=== PATIENT | female | born 1955 | race Caucasian/White ===

== ENCOUNTER 2017-05-31 20:58 | Inpatient (IN) | payer OTHER ==
[~2017-05-31] VITALS: Ht 167.6 cm; Wt 104.0 kg
[2017-05-31] MEDS ORDERED: SODIUM CHLORIDE 0.9% 1,000 ML IV ONE (22:03)
[2017-05-31] MEDS ORDERED: LEVO88TA4 PO (22:21)
[2017-05-31] MEDS ORDERED: HYDR10TA PO (22:21)
[2017-05-31] MEDS ORDERED: [UNRECOGNIZED DRUG - CODE] SQ (22:21)
[2017-05-31] MEDS ORDERED: ONDANSETRON 2MG/ML, 2ML ONE (22:25)
[2017-05-31] MEDS ORDERED: ONDANSETRON 2MG/ML, 2ML IVPush ONE (22:30)
[2017-05-31] MEDS ORDERED: SODIUM CHLORIDE FLUSH 10ML SYR IVF ONE (22:30)
[2017-05-31 23:01] LABS: BLOOD UREA NITROGEN 33 mg/dL (7-18)
[2017-05-31 23:07] LABS: ASPARTATE AMINO TRANSFERASE 115 U/L (15-37)
[2017-05-31 23:19] LABS: IS PT STATUS REG ER OR PRE ER? YES
[2017-05-31] MEDS ORDERED: HEPARIN 25,000 UNITS/500ML PMX 500 ML IV PRN (23:45)
[2017-05-31] MEDS ORDERED: HEPARIN 5,000 UNITS/ML, 1ML IV PRN (23:45)
[2017-05-31] MEDS ORDERED: HEPARIN 5,000 UNITS/ML, 1ML IV ONE (23:45)
[2017-06-01] MEDS ORDERED: SODIUM CHLORIDE FLUSH 10ML SYR IVF PRN
[2017-06-01] MEDS ORDERED: HEPARIN 5,000 UNITS/ML, 1ML ONE (00:18)
[2017-06-01] MEDS ORDERED: NS + 20MEQ KCL 1,000 ML IV SCH (00:39)
[2017-06-01] MEDS ORDERED: HEPARIN 25,000 UNITS/500ML PMX 500 ML ONE (00:49)
[2017-06-01] MEDS ORDERED: DOCUSATE 100 MG CAPSULE PO PRN (01:00)
[2017-06-01] MEDS ORDERED: POLYETHYLENE GLYCOL 17 GM PACKET PO PRN (01:00)
[2017-06-01] MEDS ORDERED: ONDANSETRON 2MG/ML, 2ML IVPush PRN (01:00)
[2017-06-01] MEDS ORDERED: ACETAMINOPHEN 325 MG TABLET PO PRN (01:00)
[2017-06-01] MEDS ORDERED: CEFTRIAXONE PMX 1GM/50ML 50 ML ONE (01:05)
[2017-06-01] MEDS: CEFTRIAXONE PMX 1GM/50ML 50 ML IV SCH (01:08)
[2017-06-01 02:13] VITALS: BP 91/60
[2017-06-01] MEDS: LEVOTHYROXINE 88 MCG TABLET PO SCH (06:23)
[2017-06-01] MEDS: ASPIRIN 325 MG TABLET EC PO SCH (06:23)
[2017-06-01 06:42] LABS: BLOOD UREA NITROGEN 30 mg/dL (7-18)
[2017-06-01 06:46] LABS: IS PT STATUS REG ER OR PRE ER? NO
[2017-06-01 06:53] VITALS: BP_SYST 110; BP_SYST 142; BP_DIAS 68; BP_DIAS 83
[2017-06-01] MEDS: OCTREOTIDE 500 MCG/ML, 1ML (0.5MG/ML) SQ SCH ×2 (08:20→21:22)
[2017-06-01] MEDS: HYDROCORTISONE 10 MG TABLET PO SCH ×2 (08:23→21:21)
[2017-06-01] MEDS: SENNA/DOCUSATE TABLET PO SCH (08:23)
[2017-06-01 12:57] VITALS: BP 91/58
[2017-06-01] MEDS ORDERED: MIDAZOLAM 1 MG/ML, 5ML ONE (15:57)
[2017-06-01] MEDS ORDERED: FENTANYL PF 100 MCG/2ML ONE (15:57)
[2017-06-01] MEDS ORDERED: VERAPAMIL 2.5 MG/ML, 2ML ONE (15:57)
[2017-06-01] MEDS ORDERED: TICAGRELOR 90 MG TABLET ONE (15:57)
[2017-06-01] MEDS ORDERED: HEPARIN 1,000 UNITS/ML, 10ML ONE (15:58)
[2017-06-01] MEDS ORDERED: LIDOCAINE 2%, 20ML ONE (15:58)
[2017-06-01] MEDS ORDERED: BIVALIRUDIN 250 MG ONE (15:58)
[2017-06-01] MEDS ORDERED: NITROGLYCERIN 5 MG/ML, 10ML ONE (16:43)
[2017-06-01] MEDS: SODIUM CHLORIDE 0.9% 1,000 ML IV SCH (17:14)
[2017-06-01 20:12] VITALS: BP 106/73
[2017-06-02] MEDS: SODIUM CHLORIDE 0.9% 1,000 ML IV SCH ×3 (00:55→17:14)
[2017-06-02] MEDS: CEFTRIAXONE PMX 1GM/50ML 50 ML IV SCH (00:55)
[2017-06-02 01:04] VITALS: BP 96/65
[2017-06-02 05:03] LABS: BLOOD UREA NITROGEN 27 mg/dL (7-18)
[2017-06-02 05:16] LABS: ASPARTATE AMINO TRANSFERASE 49 U/L (15-37); TOTAL IRON BINDING CAPACITY 181 mcg/dL (250-450)
[2017-06-02 05:51] LABS: HEPATITIS C VIRUS ANTIBODY Nonreactive (Nonreactive)
[2017-06-02] MEDS: ASPIRIN 325 MG TABLET EC PO SCH (06:25)
[2017-06-02] MEDS: LEVOTHYROXINE 88 MCG TABLET PO SCH (06:25)
[2017-06-02] MEDS: OCTREOTIDE 500 MCG/ML, 1ML (0.5MG/ML) SQ SCH ×2 (06:29→21:01)
[2017-06-02 07:55] VITALS: BP 92/57
[2017-06-02] MEDS: HYDROcodone/APAP 5/325 TABLET PO PRN ×2 (10:03→22:30)
[2017-06-02] MEDS: HYDROCORTISONE 10 MG TABLET PO SCH ×2 (10:04→21:01)
[2017-06-02] MEDS: SENNA/DOCUSATE TABLET PO SCH (10:06)
[2017-06-02 13:45] VITALS: BP 93/60
[2017-06-02 21:00] VITALS: BP 100/63
[2017-06-02] MEDS: morphine SULFATE 10 MG/ML, 1ML IVPush PRN ×2 (23:24→23:57)
[2017-06-03] MEDS: CEFTRIAXONE PMX 1GM/50ML 50 ML IV SCH (00:31)
[2017-06-03 00:35] VITALS: BP 100/65
[2017-06-03 06:04] LABS: BLOOD UREA NITROGEN 26 mg/dL (7-18)
[2017-06-03] MEDS: ASPIRIN 325 MG TABLET EC PO SCH (06:07)
[2017-06-03] MEDS: LEVOTHYROXINE 88 MCG TABLET PO SCH (06:07)
[2017-06-03 08:22] VITALS: BP 105/72
[2017-06-03] MEDS: HYDROCORTISONE 10 MG TABLET PO SCH ×2 (08:32→21:42)
[2017-06-03] MEDS: OCTREOTIDE 500 MCG/ML, 1ML (0.5MG/ML) SQ SCH ×2 (08:32→20:54)
[2017-06-03] MEDS: SENNA/DOCUSATE TABLET PO SCH (08:33)
[2017-06-03] MEDS ORDERED: PHENYLEPHRINE 10 MG/ML ONE (12:35)
[2017-06-03] MEDS ORDERED: PROPOFOL 10 MG/ML, 20ML ONE (12:35)
[2017-06-03] MEDS: ENOXAPARIN 40 MG/0.4 ML SQ SCH (13:59)
[2017-06-03 15:13] VITALS: BP 102/67
[2017-06-03 20:47] VITALS: BP 97/59
[2017-06-04] MEDS: CEFTRIAXONE PMX 1GM/50ML 50 ML IV SCH (01:03)
[2017-06-04 02:02] VITALS: BP 90/53
[2017-06-04 05:13] LABS: ASPARTATE AMINO TRANSFERASE 37 U/L (15-37); BLOOD UREA NITROGEN 19 mg/dL (7-18)
[2017-06-04] MEDS: LEVOTHYROXINE 88 MCG TABLET PO SCH (06:11)
[2017-06-04] MEDS: ASPIRIN 325 MG TABLET EC PO SCH (06:12)
[2017-06-04 07:29] VITALS: BP 97/60
[2017-06-04] MEDS: HYDROCORTISONE 10 MG TABLET PO SCH ×2 (09:33→21:10)
[2017-06-04] MEDS: OCTREOTIDE 500 MCG/ML, 1ML (0.5MG/ML) SQ SCH ×2 (09:33→21:10)
[2017-06-04] MEDS: SENNA/DOCUSATE TABLET PO SCH (09:33)
[2017-06-04] MEDS: ENOXAPARIN 40 MG/0.4 ML SQ SCH (14:43)
[2017-06-04 14:50] VITALS: BP 93/56
[2017-06-04 19:07] VITALS: BP 107/70
[2017-06-05 00:58] VITALS: BP 100/63
[2017-06-05] MEDS: CEFTRIAXONE PMX 1GM/50ML 50 ML IV SCH (01:05)
[2017-06-05 05:29] LABS: BLOOD UREA NITROGEN 21 mg/dL (7-18)
[2017-06-05] MEDS: ASPIRIN 325 MG TABLET EC PO SCH (06:17)
[2017-06-05] MEDS: LEVOTHYROXINE 88 MCG TABLET PO SCH (06:18)
[2017-06-05] MEDS: OCTREOTIDE 500 MCG/ML, 1ML (0.5MG/ML) SQ SCH ×2 (08:36→21:00)
[2017-06-05] MEDS: HYDROCORTISONE 10 MG TABLET PO SCH ×2 (08:36→21:00)
[2017-06-05] MEDS: SENNA/DOCUSATE TABLET PO SCH (08:36)
[2017-06-05 08:40] VITALS: BP 112/69
[2017-06-05 14:25] VITALS: BP 119/68
[2017-06-05] MEDS: ENOXAPARIN 40 MG/0.4 ML SQ SCH (14:59)
[2017-06-05 18:49] VITALS: BP 99/61
[2017-06-06 01:41] VITALS: BP 99/62
[2017-06-06] MEDS: CEFTRIAXONE PMX 1GM/50ML 50 ML IV SCH (01:45)
[2017-06-06] MEDS: HYDROcodone/APAP 5/325 TABLET PO PRN (03:36)
[2017-06-06] MEDS: LEVOTHYROXINE 88 MCG TABLET PO SCH (06:10)
[2017-06-06] MEDS: ASPIRIN 325 MG TABLET EC PO SCH (06:10)
[2017-06-06 08:50] VITALS: BP 118/73
[2017-06-06] MEDS: SENNA/DOCUSATE TABLET PO SCH (08:56)
[2017-06-06] MEDS: HYDROCORTISONE 10 MG TABLET PO SCH ×2 (08:56→20:21)
[2017-06-06] MEDS: OCTREOTIDE 500 MCG/ML, 1ML (0.5MG/ML) SQ SCH ×2 (08:57→20:21)
[2017-06-06] MEDS: ENOXAPARIN 40 MG/0.4 ML SQ SCH (13:33)
[2017-06-06 13:45] VITALS: BP 115/71
[2017-06-06 19:48] VITALS: BP 99/55
[2017-06-07] MEDS: CEFTRIAXONE PMX 1GM/50ML 50 ML IV SCH (01:25)
[2017-06-07 02:28] VITALS: BP 104/67
[2017-06-07] MEDS: HYDROcodone/APAP 5/325 TABLET PO PRN ×2 (02:33→09:27)
[2017-06-07 02:45] VITALS: BP 105/69
[2017-06-07] MEDS: LEVOTHYROXINE 88 MCG TABLET PO SCH (06:07)
[2017-06-07] MEDS: ASPIRIN 325 MG TABLET EC PO SCH (06:07)
[2017-06-07 06:38] LABS: ASPARTATE AMINO TRANSFERASE 13 U/L (15-37); BLOOD UREA NITROGEN 21 mg/dL (7-18)
[2017-06-07 06:59] VITALS: BP 112/68
[2017-06-07] MEDS: OCTREOTIDE 500 MCG/ML, 1ML (0.5MG/ML) SQ SCH ×2 (09:25→21:18)
[2017-06-07] MEDS: HYDROCORTISONE 10 MG TABLET PO SCH ×2 (09:27→21:18)
[2017-06-07] MEDS: SENNA/DOCUSATE TABLET PO SCH (09:27)
[2017-06-07 13:16] VITALS: BP 99/67
[2017-06-07] MEDS: ENOXAPARIN 40 MG/0.4 ML SQ SCH (13:53)
[2017-06-07] MEDS ORDERED: INSULIN ASPART 100 UNITS/ML, PEN SQ-INSULIN SCH (15:00)
[2017-06-07] MEDS ORDERED: CHLORHEXIDINE MOUTHWASH 15 ML UDC MM PRN (15:00)
[2017-06-07 15:32] LABS: BLOOD UREA NITROGEN 19 mg/dL (7-18)
[2017-06-07 15:34] LABS: ASPARTATE AMINO TRANSFERASE 12 U/L (15-37)
[2017-06-07 19:39] VITALS: BP 101/63
[2017-06-07] MEDS: MUPIROCIN OINT 2%, 22GM TP SCH (22:05)
[2017-06-08] MEDS: CEFTRIAXONE PMX 1GM/50ML 50 ML IV SCH (01:19)
[2017-06-08 03:19] VITALS: BP 103/68
[2017-06-08] MEDS ORDERED: ALBUMIN HUMAN 5% 500 ML IV ONE (04:00)
[2017-06-08 04:38] VITALS: BP 114/73
[2017-06-08 04:39] VITALS: BP 97/63
[2017-06-08] MEDS: MUPIROCIN OINT 2%, 22GM TP SCH ×3 (05:18→20:57)
[2017-06-08] MEDS: ASPIRIN 325 MG TABLET EC PO SCH (05:18)
[2017-06-08 06:01] LABS: BLOOD UREA NITROGEN 17 mg/dL (7-18)
[2017-06-08] MEDS: LEVOTHYROXINE 88 MCG TABLET PO SCH (06:20)
[2017-06-08] MEDS ORDERED: MIDAZOLAM 10MG/2 ML ONE (06:39)
[2017-06-08] MEDS ORDERED: FENTANYL PF 1000 MCG/20ML ONE (06:39)
[2017-06-08] MEDS ORDERED: PROPOFOL 10 MG/ML, 20ML ONE (07:24)
[2017-06-08] MEDS ORDERED: ROCURONIUM 10 MG/ML ONE (07:24)
[2017-06-08] MEDS ORDERED: POTASSIUM CHLORIDE 80 MEQ, SODIUM BICARBONATE 8.4% 10 MEQ, MAGNESIUM SULFATE 0.5 GM, LI... IV PRN (07:30)
[2017-06-08] MEDS ORDERED: MANNITOL PMX 20% 500 ML IVPB PRN (07:30)
[2017-06-08] MEDS ORDERED: PHENYLEPHRINE 10 MG in SODIUM CHLORIDE 0.9% 249 ML IV PRN ×2 (07:30→13:52)
[2017-06-08] MEDS ORDERED: REGULAR INSULIN 62.5 UNITS in SODIUM CHLORIDE 0.9% 249.375 ML IV PRN (07:30)
[2017-06-08] MEDS ORDERED: VANCOMYCIN 1,500 MG in SODIUM CHLORIDE 0.9% 250 ML IVPB PRN (07:30)
[2017-06-08] MEDS ORDERED: DEXMEDETOMIDINE 200 MCG in SODIUM CHLORIDE 0.9% 48 ML IV SCH (07:30)
[2017-06-08] MEDS ORDERED: EPINEPHRINE 2 MG in SODIUM CHLORIDE 0.9% 248 ML IV SCH (07:30)
[2017-06-08] MEDS ORDERED: ASPIRIN 325 MG TABLET EC PO ONE (08:30)
[2017-06-08] MEDS ORDERED: hydrALAzine 20 MG/ML, 1ML IV PRN (08:30)
[2017-06-08] MEDS: LISINOPRIL 10 MG TABLET PO SCH ×2 (09:00→19:50)
[2017-06-08] MEDS ORDERED: AMINOCAPROIC ACID 250 MG/ML, 20ML ONE (11:07)
[2017-06-08] MEDS ORDERED: PROTAMINE SULFATE 10 MG/ML, 25ML ONE (11:08)
[2017-06-08] MEDS ORDERED: NITROGLYCERIN/D5W PMX 250 ML IV PRN (13:52)
[2017-06-08] MEDS ORDERED: DOBUTAMINE 250 MG in SODIUM CHLORIDE 0.9% 230 ML IV PRN (13:52)
[2017-06-08] MEDS ORDERED: DEXMEDETOMIDINE 200 MCG in SODIUM CHLORIDE 0.9% 48 ML IV PRN (13:52)
[2017-06-08] MEDS ORDERED: ALBUMIN HUMAN 25% 100 ML ONE (13:58)
[2017-06-08] MEDS ORDERED: HEPARIN 1,000 UNITS/ML, 30ML ONE (13:59)
[2017-06-08] MEDS ORDERED: LIDOCAINE 2% 100MG/5ML SYRINGE ONE (13:59)
[2017-06-08] MEDS ORDERED: methylPREDNISolone SOD SUCC 125 MG/2 ML ONE (13:59)
[2017-06-08] MEDS ORDERED: LACTATED RINGERS 500 ML IVBOLUS PRN (14:00)
[2017-06-08] MEDS ORDERED: GLUCAGON 1 MG IM PRN (14:00)
[2017-06-08] MEDS ORDERED: ONDANSETRON 2MG/ML, 2ML IVPush PRN (14:00)
[2017-06-08] MEDS ORDERED: ACETAMINOPHEN 650 MG SUPP PR PRN (14:00)
[2017-06-08] MEDS ORDERED: ACETAMINOPHEN 325 MG TABLET PO PRN (14:00)
[2017-06-08] MEDS: KSCALE TO 4.5 IV SCH ×2 (14:00→19:59)
[2017-06-08] MEDS ORDERED: DEXTROSE 4 GM TAB.CHEW PO PRN (14:00)
[2017-06-08] MEDS ORDERED: MIDAZOLAM 1 MG/ML, 5ML IVPush PRN (14:00)
[2017-06-08] MEDS ORDERED: MEPERIDINE/PF 25MG/0.5ML IVPush PRN (14:00)
[2017-06-08] MEDS ORDERED: OXYcodone IR 5MG TABLET PO PRN (14:00)
[2017-06-08] MEDS ORDERED: PROCHLORPERAZINE 5 MG/ML, 2ML IVPush PRN (14:00)
[2017-06-08] MEDS ORDERED: BISACODYL 10 MG SUPP PR PRN (14:00)
[2017-06-08] MEDS ORDERED: DEXTROSE 50%, 50ML SYRINGE IVPush PRN (14:00)
[2017-06-08] MEDS ORDERED: BISACODYL 5 MG EC TABLET PO PRN (14:00)
[2017-06-08 14:30] LABS: ABG COLLECTION SITE ARTERIAL LINE
[2017-06-08] MEDS: SODIUM BICARB 8.4%, 50ML SYRINGE IV PRN ×3 (15:06→20:57)
[2017-06-08] MEDS ORDERED: LACTATED RINGERS 1,000 ML IVBOLUS PRN (15:18)
[2017-06-08] MEDS: SODIUM CHLORIDE 0.9% 1,000 ML IV PRN (15:20)
[2017-06-08] MEDS: MAGNESIUM SULFATE 1 GM in SODIUM CHLORIDE 0.9% 50 ML IVPB SCH (15:32)
[2017-06-08] MEDS ORDERED: POTASSIUM CHLORIDE PMX 100 ML IV ONE (16:00)
[2017-06-08] MEDS: morphine SULFATE 10 MG/ML, 1ML IVPush PRN ×2 (17:14→21:37)
[2017-06-08] MEDS: EPINEPHRINE 2 MG in SODIUM CHLORIDE 0.9% 248 ML IV PRN ×2 (17:50→22:08)
[2017-06-08] MEDS: VANCOMYCIN 1,400 MG in SODIUM CHLORIDE 0.9% 250 ML IVPB SCH (18:38)
[2017-06-08] MEDS: CEFUROXIME 1.5 GM in SODIUM CHLORIDE 0.9% 50 ML IVPB SCH (19:31)
[2017-06-08] MEDS: SODIUM CHLORIDE FLUSH 10ML SYR IVF SCH (20:17)
[2017-06-08] MEDS: MUPIROCIN OINT 2%, 22GM NAS SCH (20:57)
[2017-06-08] MEDS: DOCUSATE 100 MG CAPSULE PO SCH (20:58)
[2017-06-08] MEDS: REGULAR INSULIN 62.5 UNITS in SODIUM CHLORIDE 0.9% 249.375 ML IV PRN (22:08)
[2017-06-09] VITALS (7 sets, daily range): BP systolic 105–122; BP diastolic 52–66
[2017-06-09] MEDS: morphine SULFATE 10 MG/ML, 1ML IVPush PRN ×7 (01:36→23:45)
[2017-06-09] MEDS: KSCALE TO 4.5 IV SCH ×4 (01:52→23:00)
[2017-06-09] MEDS: EPINEPHRINE 4 MG in SODIUM CHLORIDE 0.9% 246 ML IV PRN ×2 (02:19→21:25)
[2017-06-09 04:56] LABS: ABG COLLECTION SITE ARTERIAL LINE
[2017-06-09] MEDS ORDERED: LACTATED RINGERS 1,000 ML IVBOLUS ONE (05:00)
[2017-06-09 05:10] LABS: BLOOD UREA NITROGEN 20 mg/dL (7-18)
[2017-06-09] MEDS: VANCOMYCIN 1,400 MG in SODIUM CHLORIDE 0.9% 250 ML IVPB SCH (05:52)
[2017-06-09] MEDS: LEVOTHYROXINE 88 MCG TABLET PO SCH (08:30)
[2017-06-09] MEDS: LISINOPRIL 10 MG TABLET PO SCH ×2 (09:00→21:00)
[2017-06-09] MEDS: DOCUSATE 100 MG CAPSULE PO SCH ×2 (09:00→21:00)
[2017-06-09] MEDS ORDERED: ASPIRIN 81 MG TABLET EC PO SCH (09:00)
[2017-06-09] MEDS: CEFUROXIME 1.5 GM in SODIUM CHLORIDE 0.9% 50 ML IVPB SCH (10:01)
[2017-06-09] MEDS: OCTREOTIDE 500 MCG/ML, 1ML (0.5MG/ML) SQ SCH (10:05)
[2017-06-09] MEDS: HYDROCORTISONE 100 MG INJ. IVPush SCH ×3 (10:05→23:45)
[2017-06-09] MEDS: PANTOPRAZOLE 40 MG IV IVPush SCH (10:06)
[2017-06-09] MEDS: SODIUM CHLORIDE FLUSH 10ML SYR IVF SCH ×2 (12:00→21:11)
[2017-06-09] MEDS: MUPIROCIN OINT 2%, 22GM NAS SCH ×2 (14:01→21:10)
[2017-06-09] MEDS: MAGNESIUM SULFATE 1 GM in SODIUM CHLORIDE 0.9% 50 ML IVPB SCH (14:02)
[2017-06-09] MEDS ORDERED: ALBUMIN HUMAN 5% 500 ML IV ONE (15:00)
[2017-06-09] MEDS: CHLORHEXIDINE MOUTHWASH 15 ML UDC MM SCH (17:05)
[2017-06-09] MEDS ORDERED: WARFARIN 7.5 MG TABLET PO-COUM ONE (18:00)
[2017-06-09] MEDS: MUPIROCIN OINT 2%, 22GM TP SCH (21:00)
[2017-06-09] MEDS: REGULAR INSULIN 62.5 UNITS in SODIUM CHLORIDE 0.9% 249.375 ML IV PRN (21:10)
[2017-06-09] MEDS: SODIUM CHLORIDE 0.9% 1,000 ML IV PRN (22:33)
[2017-06-10] MEDS: CHLORHEXIDINE MOUTHWASH 15 ML UDC MM SCH ×2 (01:33→14:00)
[2017-06-10] MEDS ORDERED: FUROSEMIDE 20 MG/2 ML IV ONE ×2 (02:30→17:30)
[2017-06-10 03:41] LABS: ABG COLLECTION SITE ARTERIAL LINE
[2017-06-10 04:00] LABS: BLOOD UREA NITROGEN 24 mg/dL (7-18)
[2017-06-10 05:00] VITALS: BP 100/58
[2017-06-10] MEDS: LEVOTHYROXINE 88 MCG TABLET PO SCH (06:49)
[2017-06-10] MEDS: INSULIN ASPART 100 UNITS/ML, PEN SQ-INSULIN PRN ×3 (06:55→22:57)
[2017-06-10] MEDS: FUROSEMIDE 20 MG/2 ML IV SCH (08:03)
[2017-06-10] MEDS: HYDROCORTISONE 100 MG INJ. IVPush SCH ×2 (08:03→17:16)
[2017-06-10] MEDS: PANTOPRAZOLE 40 MG IV IVPush SCH (08:03)
[2017-06-10] MEDS: ENOXAPARIN 40 MG/0.4 ML SQ SCH (08:03)
[2017-06-10] MEDS: SODIUM CHLORIDE FLUSH 10ML SYR IVF SCH ×2 (08:03→21:37)
[2017-06-10] MEDS: LISINOPRIL 10 MG TABLET PO SCH ×2 (08:03→21:36)
[2017-06-10] MEDS: POTASSIUM CHLORIDE 10 MEQ TABLET.ER PO SCH (08:13)
[2017-06-10] MEDS: OCTREOTIDE 500 MCG/ML, 1ML (0.5MG/ML) SQ SCH (08:14)
[2017-06-10] MEDS: ASPIRIN 81 MG TABLET EC PO SCH (08:14)
[2017-06-10] MEDS: DOCUSATE 100 MG CAPSULE PO SCH ×2 (08:14→21:36)
[2017-06-10] MEDS: HYDROcodone/APAP 10/325 MG TABLET PO PRN ×2 (08:14→14:16)
[2017-06-10] MEDS: MUPIROCIN OINT 2%, 22GM NAS SCH ×2 (08:14→21:36)
[2017-06-10] MEDS: MUPIROCIN OINT 2%, 22GM TP SCH (09:00)
[2017-06-10] MEDS: MAGNESIUM SULFATE 1 GM in SODIUM CHLORIDE 0.9% 50 ML IVPB SCH (13:50)
[2017-06-10] MEDS ORDERED: WARFARIN 7.5 MG TABLET PO-COUM SCH (18:00)
[2017-06-11] MEDS: HYDROCORTISONE 100 MG INJ. IVPush SCH ×3 (00:15→16:25)
[2017-06-11] MEDS: HYDROcodone/APAP 10/325 MG TABLET PO PRN ×4 (00:16→16:24)
[2017-06-11] MEDS: INSULIN ASPART 100 UNITS/ML, PEN SQ-INSULIN PRN ×5 (03:11→21:08)
[2017-06-11] MEDS: CHLORHEXIDINE MOUTHWASH 15 ML UDC MM SCH (03:12)
[2017-06-11 04:50] LABS: BLOOD UREA NITROGEN 25 mg/dL (7-18)
[2017-06-11] MEDS: LEVOTHYROXINE 88 MCG TABLET PO SCH (06:58)
[2017-06-11] MEDS: POTASSIUM CHLORIDE 10 MEQ TABLET.ER PO SCH (08:24)
[2017-06-11] MEDS: FUROSEMIDE 20 MG/2 ML IV SCH (08:24)
[2017-06-11] MEDS: PANTOPRAZOLE 40 MG IV IVPush SCH (08:24)
[2017-06-11] MEDS: DOCUSATE 100 MG CAPSULE PO SCH ×2 (08:24→21:07)
[2017-06-11] MEDS: ASPIRIN 81 MG TABLET EC PO SCH (08:24)
[2017-06-11] MEDS: OCTREOTIDE 500 MCG/ML, 1ML (0.5MG/ML) SQ SCH ×2 (08:25→18:25)
[2017-06-11] MEDS: LISINOPRIL 10 MG TABLET PO SCH ×2 (08:25→21:00)
[2017-06-11] MEDS: MUPIROCIN OINT 2%, 22GM NAS SCH ×2 (08:25→21:07)
[2017-06-11] MEDS: ENOXAPARIN 40 MG/0.4 ML SQ SCH (08:25)
[2017-06-11] MEDS: SODIUM CHLORIDE FLUSH 10ML SYR IVF SCH (08:25)
[2017-06-11] MEDS: WARFARIN MODERAT DOSE PROTOCOL XX SCH (12:00)
[2017-06-11] MEDS ORDERED: WARFARIN 7.5 MG TABLET PO-COUM SCH (18:00)
[2017-06-11 19:45] VITALS: BP 97/61
[2017-06-12] MEDS: SODIUM CHLORIDE FLUSH 10ML SYR IVF SCH ×2 (00:38→08:40)
[2017-06-12] MEDS: HYDROCORTISONE 100 MG INJ. IVPush SCH ×3 (00:38→17:04)
[2017-06-12 01:50] VITALS: BP 106/65
[2017-06-12] MEDS: LEVOTHYROXINE 88 MCG TABLET PO SCH (05:13)
[2017-06-12] MEDS: HYDROcodone/APAP 10/325 MG TABLET PO PRN (05:13)
[2017-06-12 05:44] LABS: BLOOD UREA NITROGEN 28 mg/dL (7-18)
[2017-06-12] MEDS: PANTOPROZOLE 40MG TABLET PO SCH (08:40)
[2017-06-12] MEDS: ENOXAPARIN 40 MG/0.4 ML SQ SCH (08:40)
[2017-06-12] MEDS: FUROSEMIDE 20 MG/2 ML IV SCH ×2 (08:40→20:38)
[2017-06-12] MEDS: POTASSIUM CHLORIDE 10 MEQ TABLET.ER PO SCH ×2 (08:41→20:37)
[2017-06-12] MEDS: ASPIRIN 81 MG TABLET EC PO SCH (08:41)
[2017-06-12] MEDS: DOCUSATE 100 MG CAPSULE PO SCH ×2 (08:41→20:36)
[2017-06-12] MEDS: LISINOPRIL 10 MG TABLET PO SCH ×2 (08:41→20:36)
[2017-06-12] MEDS: MUPIROCIN OINT 2%, 22GM NAS SCH ×2 (08:41→21:00)
[2017-06-12 08:46] VITALS: BP 126/81
[2017-06-12] MEDS ORDERED: OCTREOTIDE 500 MCG/ML, 1ML (0.5MG/ML) SQ PRN (11:00)
[2017-06-12] MEDS: WARFARIN MODERAT DOSE PROTOCOL XX SCH (12:00)
[2017-06-12 14:07] VITALS: BP 92/60
[2017-06-12] MEDS ORDERED: POTASSIUM CHLORIDE 20 MEQ TAB.ER.PRT PO ONE (17:00)
[2017-06-12] MEDS ORDERED: LIDOCAINE 1%, 20ML ONE (17:11)
[2017-06-12] MEDS ORDERED: WARFARIN 5 MG TABLET PO-COUM SCH (18:00)
[2017-06-12] MEDS: KETOROLAC 30 MG/1 ML IVPush PRN (18:10)
[2017-06-12 20:00] VITALS: BP 103/69
[2017-06-13] MEDS: HYDROCORTISONE 100 MG INJ. IVPush SCH ×2 (00:34→08:43)
[2017-06-13 02:00] VITALS: BP 107/73
[2017-06-13] MEDS: KETOROLAC 30 MG/1 ML IVPush PRN ×2 (04:12→22:32)
[2017-06-13] MEDS: SODIUM CHLORIDE FLUSH 10ML SYR IVF SCH ×3 (04:12→20:46)
[2017-06-13] MEDS: LEVOTHYROXINE 88 MCG TABLET PO SCH (05:32)
[2017-06-13 05:35] LABS: BLOOD UREA NITROGEN 26 mg/dL (7-18)
[2017-06-13] MEDS ORDERED: POTASSIUM CHLORIDE 20 MEQ TAB.ER.PRT PO ONE ×2 (07:00→08:30)
[2017-06-13] MEDS: POTASSIUM CHLORIDE 10 MEQ TABLET.ER PO SCH ×2 (08:42→20:46)
[2017-06-13] MEDS: LISINOPRIL 10 MG TABLET PO SCH ×2 (08:42→20:45)
[2017-06-13] MEDS: ASPIRIN 81 MG TABLET EC PO SCH (08:43)
[2017-06-13] MEDS: MUPIROCIN OINT 2%, 22GM NAS SCH (08:43)
[2017-06-13] MEDS: ENOXAPARIN 40 MG/0.4 ML SQ SCH (08:43)
[2017-06-13] MEDS: PANTOPROZOLE 40MG TABLET PO SCH (08:43)
[2017-06-13] MEDS: DOCUSATE 100 MG CAPSULE PO SCH ×2 (08:43→20:46)
[2017-06-13] MEDS: FUROSEMIDE 20 MG/2 ML IV SCH ×2 (08:43→20:46)
[2017-06-13 09:18] VITALS: BP 90/63
[2017-06-13] MEDS ORDERED: LIDOCAINE 1%, 20ML ONE (09:36)
[2017-06-13] MEDS: WARFARIN MODERAT DOSE PROTOCOL XX SCH (12:00)
[2017-06-13 14:20] VITALS: BP 86/59
[2017-06-13] MEDS: HYDROCORTISONE 10 MG TABLET PO SCH (17:25)
[2017-06-13] MEDS ORDERED: WARFARIN 7.5 MG TABLET PO-COUM SCH (18:00)
[2017-06-13] MEDS ORDERED: OXYcodone IR 5MG TABLET PO PRN (19:30)
[2017-06-13] MEDS ORDERED: BISACODYL 10 MG SUPP PR PRN (19:30)
[2017-06-13] MEDS ORDERED: hydrALAzine 20 MG/ML, 1ML IV PRN (19:30)
[2017-06-13] MEDS ORDERED: ACETAMINOPHEN 650 MG SUPP PR PRN (19:30)
[2017-06-13] MEDS ORDERED: OCTREOTIDE 500 MCG/ML, 1ML (0.5MG/ML) SQ PRN (19:30)
[2017-06-13] MEDS ORDERED: PROCHLORPERAZINE 5 MG/ML, 2ML IVPush PRN (19:30)
[2017-06-13] MEDS ORDERED: ACETAMINOPHEN 325 MG TABLET PO PRN (19:30)
[2017-06-13] MEDS ORDERED: BISACODYL 5 MG EC TABLET PO PRN (19:30)
[2017-06-13 20:10] VITALS: BP 95/62
[2017-06-13] MEDS ORDERED: ALBU8.5H3 NEB (20:26)
[2017-06-14 02:05] VITALS: BP 94/63
[2017-06-14 05:04] LABS: BLOOD UREA NITROGEN 26 mg/dL (7-18)
[2017-06-14] MEDS: LEVOTHYROXINE 88 MCG TABLET PO SCH (05:09)
[2017-06-14] MEDS: KETOROLAC 30 MG/1 ML IVPush PRN (05:09)
[2017-06-14 08:22] VITALS: BP 94/61
[2017-06-14] MEDS: HYDROCORTISONE 10 MG TABLET PO SCH (08:24)
[2017-06-14] MEDS: FUROSEMIDE 20 MG/2 ML IV SCH (08:24)
[2017-06-14] MEDS: ENOXAPARIN 40 MG/0.4 ML SQ SCH (08:24)
[2017-06-14] MEDS: DOCUSATE 100 MG CAPSULE PO SCH (08:25)
[2017-06-14] MEDS: PANTOPROZOLE 40MG TABLET PO SCH (08:25)
[2017-06-14] MEDS: POTASSIUM CHLORIDE 10 MEQ TABLET.ER PO SCH (08:25)
[2017-06-14] MEDS: ASPIRIN 81 MG TABLET EC PO SCH (08:25)
[2017-06-14] MEDS: SODIUM CHLORIDE FLUSH 10ML SYR IVF SCH (08:27)
[2017-06-14] MEDS ORDERED: POTASSIUM CHLORIDE 20 MEQ TAB.ER.PRT PO ONE (08:30)
[2017-06-14] MEDS ORDERED: ASPI-621 PO (10:17)
[2017-06-14] MEDS ORDERED: WARF5TAB PO-COUM (10:17)
[2017-06-14] MEDS ORDERED: FURO-93 PO (10:17)
[2017-06-14] MEDS ORDERED: POTA10TA5 PO (10:17)
[2017-06-14] MEDS ORDERED: LISI5TAB7 PO (10:17)
[2017-06-14] MEDS ORDERED: DOCU-30 PO (10:17)
[2017-06-14] MEDS ORDERED: PANT40TA5 PO (10:17)
[2017-06-14] MEDS ORDERED: TRAM-28 PO (10:17)
[2017-06-14] MEDS ORDERED: WARFARIN 5 MG TABLET PO-COUM SCH (18:00)
[2017-06-15] MEDS ORDERED: LISINOPRIL 5 MG TABLET PO SCH (09:00)
== END 2017-06-14 11:05 | disposition home health service (06) | DRG 216 ==
LOC: ED 23:58 → EDIP 23:59 → ED 23:59 → SUATTDRO 06-01 00:23 → 5SO 06-01 01:25 → CSU 06-08 07:45 → 5SO 06-11 18:46 → DCLOUNGE 06-14 11:05
PROVIDERS: ADMIT Family Medicine; ATTEND Internal Medicine
PROC: 4A023N7 Measurement of Cardiac Sampling and Pressure, Left Heart, Percutaneous Approach (ICD-10-PCS; principal; 2017-06-01)
PROC: B2111ZZ Fluoroscopy of Multiple Coronary Arteries using Low Osmolar Contrast (ICD-10-PCS; 2017-06-01)
PROC: 02RG08Z Replacement of Mitral Valve with Zooplastic Tissue, Open Approach (ICD-10-PCS; 2017-06-08)
PROC: 02RF08Z Replacement of Aortic Valve with Zooplastic Tissue, Open Approach (ICD-10-PCS; 2017-06-08)
PROC: 02BM0ZZ Excision of Ventricular Septum, Open Approach (ICD-10-PCS; 2017-06-08)
PROC: 5A1221Z Performance of Cardiac Output, Continuous (ICD-10-PCS; 2017-06-08)
PROC: B24BZZ4 Ultrasonography of Heart with Aorta, Transesophageal (ICD-10-PCS; 2017-06-08)
PROC: 5A1223Z Performance of Cardiac Pacing, Continuous (ICD-10-PCS; 2017-06-08)
PROC: 0W9B3ZZ Drainage of Left Pleural Cavity, Percutaneous Approach (ICD-10-PCS; 2017-06-12)
PROC: 0W993ZZ Drainage of Right Pleural Cavity, Percutaneous Approach (ICD-10-PCS; 2017-06-13)
DX: I42.1 Obstructive hypertrophic cardiomyopathy (principal); I21.4 Non-ST elevation (NSTEMI) myocardial infarction; N17.0 Acute kidney failure with tubular necrosis; E43 Unspecified severe protein-calorie malnutrition; I50.43 Acute on chronic combined systolic (congestive) and diastolic (congestive) heart failure; J96.00 Acute respiratory failure, unspecified whether with hypoxia or hypercapnia; E87.1 Hypo-osmolality and hyponatremia; B17.9 Acute viral hepatitis, unspecified; N39.0 Urinary tract infection, site not specified; E87.2 Acidosis; I44.2 Atrioventricular block, complete; Z99.11 Dependence on respirator [ventilator] status; I95.9 Hypotension, unspecified; I27.2 Other secondary pulmonary hypertension; E83.42 Hypomagnesemia; D49.7 Neoplasm of unspecified behavior of endocrine glands and other parts of nervous system; E03.9 Hypothyroidism, unspecified; D69.6 Thrombocytopenia, unspecified; E66.9 Obesity, unspecified; E78.5 Hyperlipidemia, unspecified; I08.0 Rheumatic disorders of both mitral and aortic valves; D64.9 Anemia, unspecified; E87.6 Hypokalemia; Z79.899 Other long term (current) drug therapy; Z88.1 Allergy status to other antibiotic agents; Z82.49 Family history of ischemic heart disease and other diseases of the circulatory system; Z79.52 Long term (current) use of systemic steroids
CPT/HCPCS: 36415; 36600; 70450; 71010; 71020; 76700; 80048; 80053; 80061; 80074; 81001; 81003; 82040; 82140; 82330; 82550; 82800; 82803; 82810; 82947; 82962; 83036; 83540; 83550; 83735; 84100; 84132; 84295; 84439; 84443; 84484; 85014; 85018; 85025; 85049; 85347; 85520; 85610; 85730; 86850; 86900; 86923; 87081; 87086; 88304; 88305; 93005; 93306; 93308; 93312; 93321; 93325; 93458; 93880; 94003; 94640; 96361; 96374; 96375; 96376; 99156; 99157; C1768; C1769; C1894; J0583; J0696; J0697; J1644; J1650; J1815; J1885; J2250; J2354; J2405; J2704; J2720; J3010; J3370; J3475; J3480; J3490; P9045; P9047; C1751; C1760; C1762; C9113; J0171; J1720; J1940; J2270; J2370; J2930; J7030; J7050; J7120; P9016; Q9967

== ENCOUNTER 2017-06-17 15:42 | Inpatient (IN) | payer OTHER ==
[~2017-06-17] VITALS: Ht 162.6 cm; Wt 89.2 kg
[~2017-06-17 15:42] MED LIST: ALBU8.5H3 NEB; ASPI-621 PO; DOCU-30 PO; FURO-93 PO; HYDR10TA PO; LEVO88TA4 PO; LISI5TAB7 PO; PANT40TA5 PO; POTA10TA5 PO; TRAM-28 PO; WARF5TAB PO-COUM; [UNRECOGNIZED DRUG - CODE] SQ
[2017-06-17] MEDS ORDERED: SODIUM CHLORIDE 0.9% 1,000ML IVBOLUS ONE (16:00)
[2017-06-17] MEDS ORDERED: SODIUM CHLORIDE FLUSH 10ML SYR IVF ONE (16:00)
[2017-06-17 16:25] LABS: WHITE BLOOD COUNT 9.4 x10^3/uL (3.4-10)
[2017-06-17 16:33] LABS: ASPARTATE AMINO TRANSFERASE 47 U/L (15-37); BLOOD UREA NITROGEN 14 mg/dL (7-18)
[2017-06-17 16:42] LABS: IS PT STATUS REG ER OR PRE ER? YES
[2017-06-17] MEDS ORDERED: NS + 20MEQ KCL 1,000 ML IV SCH (18:36)
[2017-06-17] MEDS ORDERED: POLYETHYLENE GLYCOL 17 GM PACKET PO PRN (19:00)
[2017-06-17] MEDS ORDERED: BISACODYL 10 MG SUPP PR PRN (19:00)
[2017-06-17] MEDS ORDERED: ONDANSETRON 2MG/ML, 2ML IVPush PRN (19:00)
[2017-06-17] MEDS ORDERED: NS + 20MEQ KCL 1,000 ML IV ONE (19:17)
[2017-06-17 20:30] VITALS: BP 84/59
[2017-06-17 22:55] LABS: IS PT STATUS REG ER OR PRE ER? NO
[2017-06-18 00:57] VITALS: BP 90/50
[2017-06-18 01:04] VITALS: BP 94/62
[2017-06-18] MEDS: FUROSEMIDE 20 MG TABLET PO SCH ×3 (01:05→20:52)
[2017-06-18] MEDS: POTASSIUM CHLORIDE 10 MEQ TABLET.ER PO SCH ×3 (01:05→20:51)
[2017-06-18] MEDS: ACETAMINOPHEN 325 MG TABLET PO PRN (01:59)
[2017-06-18 04:25] LABS: HEMATOCRIT 30.7 % (34.6-47.8); HEMOGLOBIN 10.1 g/dL (11.7-16.4); WHITE BLOOD COUNT 8.2 x10^3/uL (3.4-10)
[2017-06-18 04:36] LABS: BLOOD UREA NITROGEN 13 mg/dL (7-18)
[2017-06-18 04:43] LABS: ASPARTATE AMINO TRANSFERASE 34 U/L (15-37)
[2017-06-18 04:44] LABS: IS PT STATUS REG ER OR PRE ER? NO
[2017-06-18 07:00] VITALS: BP 94/66
[2017-06-18] MEDS: LEVOTHYROXINE 88 MCG TABLET PO SCH (07:50)
[2017-06-18] MEDS: SENNA/DOCUSATE TABLET PO SCH (07:50)
[2017-06-18 07:59] VITALS: BP 101/68
[2017-06-18] MEDS ORDERED: ASPIRIN 81 MG TABLET EC PO SCH (09:00)
[2017-06-18] MEDS ORDERED: LISINOPRIL 5 MG TABLET PO SCH (09:00)
[2017-06-18 16:05] VITALS: BP 89/56
[2017-06-18] MEDS: D5%-0.45NACL+KCL 20MEQ 1,000 ML IV SCH (16:58)
[2017-06-18] MEDS ORDERED: WARFARIN 5 MG TABLET PO-COUM SCH (18:00)
[2017-06-18 20:43] VITALS: BP 93/56
[2017-06-19 02:39] VITALS: BP 96/64
[2017-06-19] MEDS: ACETAMINOPHEN 325 MG TABLET PO PRN (02:43)
[2017-06-19 05:58] LABS: HEMATOCRIT 30.3 % (34.6-47.8); WHITE BLOOD COUNT 8.2 x10^3/uL (3.4-10)
[2017-06-19 06:11] LABS: BLOOD UREA NITROGEN 15 mg/dL (7-18)
[2017-06-19 06:15] LABS: ASPARTATE AMINO TRANSFERASE 27 U/L (15-37)
[2017-06-19 08:05] VITALS: BP 90/62
[2017-06-19] MEDS: POTASSIUM CHLORIDE 20 MEQ TAB.ER.PRT PO SCH ×2 (08:18→21:04)
[2017-06-19] MEDS: LEVOTHYROXINE 88 MCG TABLET PO SCH (08:19)
[2017-06-19] MEDS: SENNA/DOCUSATE TABLET PO SCH (08:19)
[2017-06-19] MEDS: FUROSEMIDE 20 MG TABLET PO SCH ×2 (08:20→17:34)
[2017-06-19] MEDS: D5%-0.45NACL+KCL 20MEQ 1,000 ML IV SCH (14:38)
[2017-06-19 14:42] VITALS: BP 89/60
[2017-06-19 17:32] VITALS: BP 93/65
[2017-06-19 20:00] VITALS: BP 88/61
[2017-06-20] VITALS (7 sets, daily range): BP systolic 92–103; BP diastolic 59–72
[2017-06-20] MEDS: OCTREOTIDE 100MCG/ML, 1ML (0.1MG/ML) SQ PRN (00:42)
[2017-06-20 04:59] LABS: BLOOD UREA NITROGEN 11 mg/dL (7-18)
[2017-06-20] MEDS ORDERED: HEPARIN 5,000 UNITS/ML, 1ML IV PRN (08:30)
[2017-06-20] MEDS ORDERED: HEPARIN 5,000 UNITS/ML, 1ML IV ONE (08:30)
[2017-06-20] MEDS ORDERED: HEPARIN 25,000 UNITS/500ML PMX 500 ML IV PRN (08:30)
[2017-06-20] MEDS: SENNA/DOCUSATE TABLET PO SCH (09:00)
[2017-06-20] MEDS: LEVOTHYROXINE 88 MCG TABLET PO SCH (09:56)
[2017-06-20] MEDS: POTASSIUM CHLORIDE 20 MEQ TAB.ER.PRT PO SCH ×2 (09:56→21:28)
[2017-06-20] MEDS ORDERED: HYDROmorphone 1 MG/ML, 1ML IV PRN ×2 (11:00→18:30)
[2017-06-20 11:02] LABS: HEMATOCRIT 31.1 % (34.6-47.8); HEMOGLOBIN 10.3 g/dL (11.7-16.4); WHITE BLOOD COUNT 8.1 x10^3/uL (3.4-10)
[2017-06-20 11:14] LABS: BLOOD UREA NITROGEN 10 mg/dL (7-18)
[2017-06-20] MEDS: D5%-0.45NACL+KCL 20MEQ 1,000 ML IV SCH (14:14)
[2017-06-20] MEDS: HYDROCORTISONE 100 MG INJ. IVPush SCH ×2 (14:15→21:28)
[2017-06-20] MEDS: FUROSEMIDE 20 MG TABLET PO SCH (17:00)
[2017-06-20] MEDS ORDERED: BISACODYL 10 MG SUPP PR PRN (18:30)
[2017-06-20] MEDS ORDERED: POLYETHYLENE GLYCOL 17 GM PACKET PO PRN (18:30)
[2017-06-20] MEDS ORDERED: ONDANSETRON 2MG/ML, 2ML IVPush PRN (18:30)
[2017-06-20] MEDS ORDERED: ACETAMINOPHEN 325 MG TABLET PO PRN (18:30)
[2017-06-21 02:12] VITALS: BP 100/68
[2017-06-21] MEDS: D5%-0.45NACL+KCL 20MEQ 1,000 ML IV SCH (05:13)
[2017-06-21] MEDS: HYDROCORTISONE 100 MG INJ. IVPush SCH ×3 (06:12→21:13)
[2017-06-21 07:07] LABS: BLOOD UREA NITROGEN 7 mg/dL (7-18)
[2017-06-21 07:10] LABS: ASPARTATE AMINO TRANSFERASE 39 U/L (15-37)
[2017-06-21 07:32] LABS: HEMATOCRIT 29.1 % (34.6-47.8); HEMOGLOBIN 9.5 g/dL (11.7-16.4); WHITE BLOOD COUNT 6.3 x10^3/uL (3.4-10)
[2017-06-21] MEDS: LEVOTHYROXINE 88 MCG TABLET PO SCH (09:32)
[2017-06-21] MEDS: FUROSEMIDE 20 MG TABLET PO SCH ×2 (09:32→17:00)
[2017-06-21] MEDS: POTASSIUM CHLORIDE 20 MEQ TAB.ER.PRT PO SCH ×2 (09:32→21:00)
[2017-06-21 09:33] VITALS: BP 104/69
[2017-06-21] MEDS: SENNA/DOCUSATE TABLET PO SCH (09:33)
[2017-06-21 13:55] VITALS: BP 103/72
[2017-06-21] MEDS ORDERED: MIDAZOLAM 1 MG/ML, 5ML ONE (15:06)
[2017-06-21] MEDS ORDERED: CEFAZOLIN 1,000 MG ONE (15:06)
[2017-06-21] MEDS ORDERED: LIDOCAINE 2%, 20ML ONE ×2 (15:06→15:53)
[2017-06-21] MEDS ORDERED: FENTANYL PF 100 MCG/2ML ONE (15:06)
[2017-06-21] MEDS ORDERED: CEFAZOLIN PMX 1GM/50ML 50 ML ONE (15:06)
[2017-06-21] MEDS ORDERED: HYDROcodone/APAP 5/325 TABLET PO PRN (17:00)
[2017-06-21 17:45] VITALS: BP 98/66
[2017-06-21 19:01] VITALS: BP 132/66
[2017-06-21 19:11] VITALS: BP 97/66
[2017-06-21] MEDS: SODIUM CHLORIDE FLUSH 10ML SYR IVF SCH (21:12)
[2017-06-21] MEDS: CEFAZOLIN PMX 1GM/50ML 50 ML IVPB SCH (23:54)
[2017-06-22 02:29] VITALS: BP 110/76
[2017-06-22] MEDS: D5%-0.45NACL+KCL 20MEQ 1,000 ML IV SCH (04:04)
[2017-06-22] MEDS: HYDROCORTISONE 100 MG INJ. IVPush SCH ×3 (05:23→23:25)
[2017-06-22 06:23] LABS: ANTI-Xa-UNFRACTIONATED HEP 0.01 IU/mL (0.30-0.70)
[2017-06-22 08:04] VITALS: BP 104/68
[2017-06-22] MEDS: LEVOTHYROXINE 88 MCG TABLET PO SCH (08:20)
[2017-06-22] MEDS: CEFAZOLIN PMX 1GM/50ML 50 ML IVPB SCH ×2 (08:20→16:24)
[2017-06-22] MEDS: SODIUM CHLORIDE FLUSH 10ML SYR IVF SCH ×2 (08:21→21:51)
[2017-06-22] MEDS: POTASSIUM CHLORIDE 20 MEQ TAB.ER.PRT PO SCH ×2 (08:21→21:00)
[2017-06-22] MEDS: SENNA/DOCUSATE TABLET PO SCH (08:21)
[2017-06-22] MEDS: FUROSEMIDE 20 MG TABLET PO SCH ×2 (08:21→16:35)
[2017-06-22] MEDS ORDERED: WARFARIN 5 MG TABLET PO-COUM ONE (11:00)
[2017-06-22 15:29] VITALS: BP 101/69
[2017-06-22 16:36] VITALS: BP 99/68
[2017-06-22 19:45] VITALS: BP 102/66
[2017-06-23 02:56] VITALS: BP 113/73
[2017-06-23 06:01] LABS: ASPARTATE AMINO TRANSFERASE 22 U/L (15-37); BLOOD UREA NITROGEN 8 mg/dL (7-18); HEMATOCRIT 27.4 % (34.6-47.8); WHITE BLOOD COUNT 4.6 x10^3/uL (3.4-10)
[2017-06-23 07:31] VITALS: BP 110/73
[2017-06-23] MEDS ORDERED: WARFARIN 5 MG TABLET PO-COUM ONE (09:23)
[2017-06-23] MEDS ORDERED: HEPARIN 25,000 UNITS/500ML PMX 500 ML IV PRN (09:30)
[2017-06-23] MEDS ORDERED: HEPARIN 25,000 UNITS/500ML PMX 500 ML ONE (10:13)
[2017-06-23] MEDS: FUROSEMIDE 20 MG TABLET PO SCH ×2 (10:33→17:49)
[2017-06-23] MEDS: SENNA/DOCUSATE TABLET PO SCH (10:33)
[2017-06-23] MEDS: POTASSIUM CHLORIDE 20 MEQ TAB.ER.PRT PO SCH ×2 (10:33→20:36)
[2017-06-23] MEDS: HYDROCORTISONE 20 MG TABLET PO SCH ×2 (10:39→17:49)
[2017-06-23] MEDS: LEVOTHYROXINE 88 MCG TABLET PO SCH (10:40)
[2017-06-23] MEDS: SODIUM CHLORIDE FLUSH 10ML SYR IVF SCH ×2 (10:40→20:36)
[2017-06-23] MEDS ORDERED: HEPARIN wt. based STROKE protocol MC SCH (11:30)
[2017-06-23] MEDS: HEPARIN 25,000 UNITS/500ML PMX 500 ML IV PRN (11:43)
[2017-06-23 12:58] VITALS: BP 104/71
[2017-06-23 19:00] VITALS: BP 108/73
[2017-06-24 00:32] VITALS: BP 113/77
[2017-06-24 03:34] LABS: ASPARTATE AMINO TRANSFERASE 21 U/L (15-37); BLOOD UREA NITROGEN 12 mg/dL (7-18)
[2017-06-24 03:38] LABS: HEMATOCRIT 28.7 % (34.6-47.8); HEMOGLOBIN 9.2 g/dL (11.7-16.4); WHITE BLOOD COUNT 5.6 x10^3/uL (3.4-10)
[2017-06-24 07:41] VITALS: BP 114/74
[2017-06-24] MEDS: HYDROCORTISONE 20 MG TABLET PO SCH ×2 (07:48→16:59)
[2017-06-24] MEDS: FUROSEMIDE 20 MG TABLET PO SCH ×2 (07:48→16:59)
[2017-06-24] MEDS: SODIUM CHLORIDE FLUSH 10ML SYR IVF SCH ×2 (07:48→22:46)
[2017-06-24] MEDS: POTASSIUM CHLORIDE 20 MEQ TAB.ER.PRT PO SCH ×2 (07:48→22:46)
[2017-06-24] MEDS: SENNA/DOCUSATE TABLET PO SCH (07:49)
[2017-06-24] MEDS: LEVOTHYROXINE 88 MCG TABLET PO SCH (07:49)
[2017-06-24] MEDS ORDERED: WARFARIN MODERAT DOSE PROTOCOL XX PRN (10:30)
[2017-06-24 14:16] VITALS: BP 115/79
[2017-06-24] MEDS: HEPARIN 25,000 UNITS/500ML PMX 500 ML IV PRN (14:17)
[2017-06-24] MEDS ORDERED: WARFARIN 7.5 MG TABLET PO-COUM SCH (18:00)
[2017-06-24 20:00] VITALS: BP 109/71
[2017-06-24 20:30] VITALS: BP 103/67
[2017-06-24 22:53] VITALS: BP 109/71
[2017-06-25 02:20] VITALS: BP 120/77
[2017-06-25 05:23] LABS: ANTI-Xa-UNFRACTIONATED HEP 0.41 IU/mL (0.30-0.70)
[2017-06-25] MEDS: FUROSEMIDE 20 MG TABLET PO SCH ×2 (08:27→16:48)
[2017-06-25] MEDS: POTASSIUM CHLORIDE 20 MEQ TAB.ER.PRT PO SCH ×2 (08:27→21:42)
[2017-06-25] MEDS: HYDROCORTISONE 20 MG TABLET PO SCH ×2 (08:27→16:48)
[2017-06-25] MEDS: LEVOTHYROXINE 88 MCG TABLET PO SCH (08:27)
[2017-06-25] MEDS: SENNA/DOCUSATE TABLET PO SCH (08:27)
[2017-06-25] MEDS: SODIUM CHLORIDE FLUSH 10ML SYR IVF SCH ×2 (08:28→21:41)
[2017-06-25 08:58] VITALS: BP 128/79
[2017-06-25] MEDS: Enoxaparin 1 mg/kg protocol SQ SCH ×2 (10:30→21:46)
[2017-06-25] MEDS: CEFTRIAXONE PMX 1GM/50ML 50 ML IV SCH (10:43)
[2017-06-25] MEDS: ENOXAPARIN 80 MG/0.8 ML SQ SCH ×2 (10:43→21:42)
[2017-06-25 15:08] VITALS: BP 107/66
[2017-06-25] MEDS: METOPROLOL TARTRATE 25 MG TABLET PO SCH (16:47)
[2017-06-25] MEDS ORDERED: WARFARIN 10 MG TABLET PO-COUM SCH (18:00)
[2017-06-25 19:04] VITALS: BP 107/68
[2017-06-25] MEDS: OCTREOTIDE 100MCG/ML, 1ML (0.1MG/ML) SQ PRN (21:42)
[2017-06-26 01:08] VITALS: BP 114/70
[2017-06-26 05:32] LABS: HEMATOCRIT 29.2 % (34.6-47.8); HEMOGLOBIN 9.6 g/dL (11.7-16.4); WHITE BLOOD COUNT 5.1 x10^3/uL (3.4-10)
[2017-06-26 05:48] LABS: ASPARTATE AMINO TRANSFERASE 19 U/L (15-37); BLOOD UREA NITROGEN 16 mg/dL (7-18)
[2017-06-26 06:22] VITALS: BP 112/75
[2017-06-26] MEDS: METOPROLOL TARTRATE 25 MG TABLET PO SCH (06:26)
[2017-06-26] MEDS ORDERED: ENOXAPARIN 80 MG/0.8 ML SQ SCH (06:49)
[2017-06-26 07:16] VITALS: BP 113/73
[2017-06-26] MEDS: HYDROCORTISONE 20 MG TABLET PO SCH (08:15)
[2017-06-26] MEDS: FUROSEMIDE 20 MG TABLET PO SCH (08:15)
[2017-06-26] MEDS: POTASSIUM CHLORIDE 20 MEQ TAB.ER.PRT PO SCH (08:16)
[2017-06-26] MEDS: SODIUM CHLORIDE FLUSH 10ML SYR IVF SCH (08:16)
[2017-06-26] MEDS: SENNA/DOCUSATE TABLET PO SCH (08:16)
[2017-06-26] MEDS: LEVOTHYROXINE 88 MCG TABLET PO SCH (08:16)
[2017-06-26] MEDS ORDERED: ATOR10TA PO (09:15)
[2017-06-26] MEDS ORDERED: METO25TA35 PO (09:15)
[2017-06-26] MEDS ORDERED: HYDR20TA PO (09:17)
[2017-06-26] MEDS ORDERED: SULF1TAB24 PO (09:17)
[2017-06-26] MEDS ORDERED: ENOX80SY5 SQ (09:24)
[2017-06-26] MEDS: CEFTRIAXONE PMX 1GM/50ML 50 ML IV SCH (09:42)
[2017-06-26] MEDS ORDERED: CARV6.25 PO (11:09)
[2017-06-26] MEDS ORDERED: WARFARIN 5 MG TABLET PO-COUM SCH (18:00)
== END 2017-06-26 12:14 | disposition home or self-care (01) | DRG 242 ==
LOC: ED 18:07 → EDIP 18:36 → 5SO 20:02
PROVIDERS: ADMIT Internal Medicine; ATTEND Family Medicine
PROC: 0JH606Z Insertion of Pacemaker, Dual Chamber into Chest Subcutaneous Tissue and Fascia, Open Approach (ICD-10-PCS; principal; 2017-06-21)
PROC: 02H63JZ Insertion of Pacemaker Lead into Right Atrium, Percutaneous Approach (ICD-10-PCS; 2017-06-21)
PROC: 02HK3JZ Insertion of Pacemaker Lead into Right Ventricle, Percutaneous Approach (ICD-10-PCS; 2017-06-21)
DX: I44.2 Atrioventricular block, complete (principal); E43 Unspecified severe protein-calorie malnutrition; J96.90 Respiratory failure, unspecified, unspecified whether with hypoxia or hypercapnia; D68.69 Other thrombophilia; E27.40 Unspecified adrenocortical insufficiency; I50.42 Chronic combined systolic (congestive) and diastolic (congestive) heart failure; N39.0 Urinary tract infection, site not specified; Q26.1 Persistent left superior vena cava; I42.1 Obstructive hypertrophic cardiomyopathy; D64.9 Anemia, unspecified; E03.9 Hypothyroidism, unspecified; E05.90 Thyrotoxicosis, unspecified without thyrotoxic crisis or storm; Z68.33 Body mass index [BMI] 33.0-33.9, adult; E87.6 Hypokalemia; I08.0 Rheumatic disorders of both mitral and aortic valves; I95.89 Other hypotension; I11.0 Hypertensive heart disease with heart failure; J32.0 Chronic maxillary sinusitis; I49.9 Cardiac arrhythmia, unspecified; T45.515A Adverse effect of anticoagulants, initial encounter; Z79.01 Long term (current) use of anticoagulants; Z80.6 Family history of leukemia; Z82.0 Family history of epilepsy and other diseases of the nervous system; Z87.891 Personal history of nicotine dependence; Z95.2 Presence of prosthetic heart valve; Z90.710 Acquired absence of both cervix and uterus; I25.2 Old myocardial infarction; Z88.1 Allergy status to other antibiotic agents
CPT/HCPCS: 33208; 36415; 70450; 71010; 80047; 80048; 80053; 81001; 81003; 82330; 82962; 83735; 83880; 84100; 84484; 85025; 85520; 85610; 85730; 87040; 87086; 93005; 93306; 96360; 99156; 99157; C1779; C1785; C1892; J0690; J0696; J1170; J1644; J1650; J2250; J2354; J2405; J3010; J3480; J3490; J1720; J7030

== ENCOUNTER 2017-06-30 16:21 | Inpatient (IN) | payer OTHER ==
[~2017-06-30] VITALS: Ht 167.6 cm; Wt 74.8 kg
[~2017-06-30 16:21] MED LIST changes: +ATOR10TA PO; +CARV6.25 PO; +DOCU-131 PO; -DOCU-30 PO; +ENOX80SY5 SQ; +HYDR20TA PO; +METO25TA35 PO; +SULF1TAB24 PO
[2017-06-30] MEDS ORDERED: SODIUM CHLORIDE FLUSH 10ML SYR IVF ONE (16:30)
[2017-06-30] MEDS ORDERED: SODIUM CHLORIDE 0.9% 1,000ML IVBOLUS ONE (16:30)
[2017-06-30] MEDS ORDERED: ASPIRIN 81 MG TABLET CHEW PO ONE (16:30)
[2017-06-30] MEDS ORDERED: ASPIRIN 81 MG TABLET CHEW ONE (16:45)
[2017-06-30 17:02] LABS: HEMATOCRIT 36.5 % (34.6-47.8); HEMOGLOBIN 11.9 g/dL (11.7-16.4); WHITE BLOOD COUNT 6.3 x10^3/uL (3.4-10)
[2017-06-30 17:08] LABS: BLOOD UREA NITROGEN 33 mg/dL (7-18)
[2017-06-30 17:12] LABS: IS PT STATUS REG ER OR PRE ER? YES
[2017-06-30] MEDS ORDERED: SODIUM CHLORIDE 0.9%, 250ML IVBOLUS ONE (17:30)
[2017-06-30] MEDS ORDERED: SODIUM CHLORIDE 0.9% 1,000 ML IV ONE (18:30)
[2017-06-30] MEDS ORDERED: SODIUM CHLORIDE 0.9% 1,000 ML IV SCH (18:52)
[2017-06-30] MEDS ORDERED: ONDANSETRON 2MG/ML, 2ML IVPush PRN (19:00)
[2017-06-30] MEDS ORDERED: POLYETHYLENE GLYCOL 17 GM PACKET PO PRN (19:00)
[2017-06-30] MEDS ORDERED: ACETAMINOPHEN 325 MG TABLET PO PRN (19:00)
[2017-06-30 19:40] VITALS: BP 87/58
[2017-06-30] MEDS ORDERED: CARVEDILOL 6.25 MG TABLET PO SCH (21:00)
[2017-06-30] MEDS: SULFAMETH./TRIMETHOPRIM DS 800MG/160MG TABLET PO SCH (21:52)
[2017-06-30] MEDS: ATORVASTATIN 10 MG TABLET PO SCH (21:52)
[2017-06-30] MEDS: DOCUSATE 100 MG CAPSULE PO SCH (21:52)
[2017-06-30] MEDS: HYDROCORTISONE 20 MG TABLET PO SCH (21:53)
[2017-06-30 23:23] LABS: IS PT STATUS REG ER OR PRE ER? NO
[2017-07-01 00:49] VITALS: BP_SYST 76; BP_SYST 78; BP_SYST 94; BP_DIAS 52; BP_DIAS 63
[2017-07-01 06:11] LABS: HEMATOCRIT 30.9 % (34.6-47.8); HEMOGLOBIN 10.3 g/dL (11.7-16.4); WHITE BLOOD COUNT 6.1 x10^3/uL (3.4-10)
[2017-07-01 06:29] LABS: ASPARTATE AMINO TRANSFERASE 25 U/L (15-37); BLOOD UREA NITROGEN 29 mg/dL (7-18); IS PT STATUS REG ER OR PRE ER? NO
[2017-07-01 07:02] VITALS: BP_SYST 90; BP_SYST 91; BP_SYST 92; BP_DIAS 61; BP_DIAS 62
[2017-07-01] MEDS ORDERED: FUROSEMIDE 20 MG TABLET PO SCH (09:00)
[2017-07-01] MEDS: POTASSIUM CHLORIDE 10 MEQ TABLET.ER PO SCH (09:00)
[2017-07-01 09:10] VITALS: BP 92/57
[2017-07-01] MEDS: ASPIRIN 81 MG TABLET EC PO SCH (09:11)
[2017-07-01] MEDS: HYDROCORTISONE 20 MG TABLET PO SCH ×2 (09:11→20:10)
[2017-07-01] MEDS: SULFAMETH./TRIMETHOPRIM DS 800MG/160MG TABLET PO SCH ×2 (09:11→20:10)
[2017-07-01] MEDS: CARVEDILOL 6.25 MG TABLET PO SCH ×2 (09:11→20:10)
[2017-07-01] MEDS: LEVOTHYROXINE 88 MCG TABLET PO SCH (09:11)
[2017-07-01] MEDS: DOCUSATE 100 MG CAPSULE PO SCH ×2 (09:11→20:10)
[2017-07-01] MEDS: LISINOPRIL 5 MG TABLET PO SCH (09:12)
[2017-07-01 14:41] VITALS: BP_SYST 93; BP_SYST 96; BP_DIAS 60; BP_DIAS 61
[2017-07-01] MEDS: OCTREOTIDE 100MCG/ML, 1ML (0.1MG/ML) SQ PRN (16:33)
[2017-07-01] MEDS ORDERED: WARFARIN 5 MG TABLET PO-COUM SCH (18:00)
[2017-07-01 18:34] VITALS: BP_SYST 73; BP_SYST 93; BP_SYST 95; BP_DIAS 52; BP_DIAS 58; BP_DIAS 62
[2017-07-01 20:08] VITALS: BP 91/60
[2017-07-01] MEDS: ATORVASTATIN 10 MG TABLET PO SCH (20:10)
[2017-07-02 01:26] VITALS: BP 98/63
[2017-07-02 08:50] VITALS: BP_SYST 81; BP_SYST 93; BP_DIAS 52; BP_DIAS 61; BP_DIAS 63
[2017-07-02] MEDS: CARVEDILOL 6.25 MG TABLET PO SCH ×2 (08:57→20:47)
[2017-07-02] MEDS: LISINOPRIL 5 MG TABLET PO SCH (08:57)
[2017-07-02] MEDS: POTASSIUM CHLORIDE 10 MEQ TABLET.ER PO SCH (08:58)
[2017-07-02] MEDS: LEVOTHYROXINE 88 MCG TABLET PO SCH (08:59)
[2017-07-02] MEDS: ASPIRIN 81 MG TABLET EC PO SCH (08:59)
[2017-07-02] MEDS: HYDROCORTISONE 20 MG TABLET PO SCH ×2 (08:59→20:46)
[2017-07-02] MEDS: SULFAMETH./TRIMETHOPRIM DS 800MG/160MG TABLET PO SCH ×2 (08:59→20:46)
[2017-07-02] MEDS: DOCUSATE 100 MG CAPSULE PO SCH ×2 (08:59→20:46)
[2017-07-02] MEDS: OCTREOTIDE 100MCG/ML, 1ML (0.1MG/ML) SQ PRN (12:45)
[2017-07-02 14:37] VITALS: BP_SYST 102; BP_SYST 95; BP_SYST 97; BP_DIAS 64; BP_DIAS 66
[2017-07-02] MEDS ORDERED: WARFARIN 5 MG TABLET PO-COUM ONE (18:00)
[2017-07-02 19:13] VITALS: BP 90/57
[2017-07-02] MEDS: ATORVASTATIN 10 MG TABLET PO SCH (20:46)
[2017-07-03 01:36] VITALS: BP 90/61
[2017-07-03 05:21] LABS: HEMATOCRIT 32.3 % (34.6-47.8); HEMOGLOBIN 10.7 g/dL (11.7-16.4); WHITE BLOOD COUNT 7.2 x10^3/uL (3.4-10)
[2017-07-03 05:41] LABS: BLOOD UREA NITROGEN 23 mg/dL (7-18)
[2017-07-03 07:35] VITALS: BP 102/69
[2017-07-03] MEDS: OCTREOTIDE 100MCG/ML, 1ML (0.1MG/ML) SQ PRN (09:17)
[2017-07-03] MEDS: HYDROCORTISONE 20 MG TABLET PO SCH ×2 (09:22→21:18)
[2017-07-03] MEDS: LEVOTHYROXINE 88 MCG TABLET PO SCH (09:22)
[2017-07-03] MEDS: SULFAMETH./TRIMETHOPRIM DS 800MG/160MG TABLET PO SCH ×2 (09:22→21:18)
[2017-07-03] MEDS: CARVEDILOL 6.25 MG TABLET PO SCH ×2 (09:23→21:00)
[2017-07-03] MEDS: ASPIRIN 81 MG TABLET EC PO SCH (09:23)
[2017-07-03] MEDS: POTASSIUM CHLORIDE 10 MEQ TABLET.ER PO SCH (09:23)
[2017-07-03] MEDS: LISINOPRIL 5 MG TABLET PO SCH (09:23)
[2017-07-03] MEDS: DOCUSATE 100 MG CAPSULE PO SCH ×2 (09:23→21:00)
[2017-07-03 14:14] VITALS: BP 86/52
[2017-07-03] MEDS ORDERED: BISACODYL 10 MG SUPP PR ONE (14:30)
[2017-07-03] MEDS ORDERED: SODIUM CHLORIDE 0.9%, 250ML IVBOLUS ONE (15:00)
[2017-07-03 16:00] VITALS: BP 93/56
[2017-07-03] MEDS ORDERED: WARFARIN 5 MG TABLET PO-COUM SCH (18:00)
[2017-07-03 18:20] VITALS: BP 86/58
[2017-07-03 21:07] VITALS: BP 91/56
[2017-07-03] MEDS: ATORVASTATIN 10 MG TABLET PO SCH (21:18)
[2017-07-04 02:04] VITALS: BP 92/59
[2017-07-04 08:54] VITALS: BP 94/66
[2017-07-04] MEDS: CARVEDILOL 6.25 MG TABLET PO SCH ×2 (09:00→21:00)
[2017-07-04] MEDS: OCTREOTIDE 100MCG/ML, 1ML (0.1MG/ML) SQ PRN (09:16)
[2017-07-04] MEDS: ASPIRIN 81 MG TABLET EC PO SCH (09:19)
[2017-07-04] MEDS: LEVOTHYROXINE 88 MCG TABLET PO SCH (09:19)
[2017-07-04] MEDS: DOCUSATE 100 MG CAPSULE PO SCH ×2 (09:19→21:19)
[2017-07-04] MEDS: POTASSIUM CHLORIDE 10 MEQ TABLET.ER PO SCH (09:20)
[2017-07-04] MEDS: HYDROCORTISONE 100 MG INJ. IVPush SCH ×3 (09:23→21:18)
[2017-07-04] MEDS ORDERED: ONDANSETRON 2MG/ML, 2ML IVPush PRN ×2 (14:00→14:30)
[2017-07-04] MEDS ORDERED: ACETAMINOPHEN 325 MG TABLET PO PRN ×2 (14:00→14:30)
[2017-07-04 14:20] VITALS: BP 108/70
[2017-07-04] MEDS ORDERED: POLYETHYLENE GLYCOL 17 GM PACKET PO PRN (14:30)
[2017-07-04] MEDS ORDERED: WARFARIN 2 MG TABLET PO-COUM SCH (18:00)
[2017-07-04 19:51] VITALS: BP 92/59
[2017-07-04 21:19] VITALS: BP 94/56
[2017-07-04] MEDS: ATORVASTATIN 10 MG TABLET PO SCH (21:19)
[2017-07-05] VITALS (8 sets, daily range): BP systolic 90–112; BP diastolic 61–73
[2017-07-05] MEDS: HYDROCORTISONE 100 MG INJ. IVPush SCH ×2 (03:19→07:40)
[2017-07-05] MEDS: CARVEDILOL 6.25 MG TABLET PO SCH (07:40)
[2017-07-05] MEDS: ASPIRIN 81 MG TABLET EC PO SCH (07:40)
[2017-07-05] MEDS: POTASSIUM CHLORIDE 10 MEQ TABLET.ER PO SCH (07:40)
[2017-07-05] MEDS: DOCUSATE 100 MG CAPSULE PO SCH ×2 (07:40→20:31)
[2017-07-05] MEDS: LEVOTHYROXINE 88 MCG TABLET PO SCH (07:40)
[2017-07-05] MEDS: HYDROCORTISONE 20 MG TABLET PO SCH ×3 (07:58→16:50)
[2017-07-05] MEDS ORDERED: WARFARIN 2 MG TABLET PO-COUM SCH (18:00)
[2017-07-05] MEDS: ATORVASTATIN 10 MG TABLET PO SCH (20:32)
[2017-07-06 04:28] VITALS: BP_SYST 110; BP_SYST 112; BP_SYST 99; BP_DIAS 69; BP_DIAS 73; BP_DIAS 75
[2017-07-06 08:16] VITALS: BP 98/67
[2017-07-06 08:18] VITALS: BP 94/66
[2017-07-06 08:20] VITALS: BP 89/64
[2017-07-06] MEDS: LEVOTHYROXINE 88 MCG TABLET PO SCH (08:25)
[2017-07-06] MEDS: DOCUSATE 100 MG CAPSULE PO SCH (08:25)
[2017-07-06] MEDS: POTASSIUM CHLORIDE 10 MEQ TABLET.ER PO SCH (08:25)
[2017-07-06] MEDS: ASPIRIN 81 MG TABLET EC PO SCH (08:25)
[2017-07-06] MEDS: HYDROCORTISONE 20 MG TABLET PO SCH ×2 (08:25→12:10)
[2017-07-06] MEDS: OCTREOTIDE 100MCG/ML, 1ML (0.1MG/ML) SQ PRN (09:25)
[2017-07-06] MEDS ORDERED: HYDR20TA PO (11:40)
[2017-07-06 14:00] VITALS: BP 105/66
[2017-07-06] MEDS ORDERED: WARFARIN 2 MG TABLET PO-COUM ONE (18:00)
== END 2017-07-06 21:08 | DRG 683 ==
LOC: ED 17:09 → EDIP 18:10 → 5SO 19:20 → ICU 07-03 11:52 → 5SO 07-05 15:36
DX: N17.0 Acute kidney failure with tubular necrosis (principal); E27.40 Unspecified adrenocortical insufficiency; E87.0 Hyperosmolality and hypernatremia; I42.1 Obstructive hypertrophic cardiomyopathy; I50.42 Chronic combined systolic (congestive) and diastolic (congestive) heart failure; E87.1 Hypo-osmolality and hyponatremia; D69.6 Thrombocytopenia, unspecified; E86.0 Dehydration; E03.9 Hypothyroidism, unspecified; E86.1 Hypovolemia; F41.0 Panic disorder [episodic paroxysmal anxiety]; I25.10 Atherosclerotic heart disease of native coronary artery without angina pectoris; I34.0 Nonrheumatic mitral (valve) insufficiency; I45.9 Conduction disorder, unspecified; I95.1 Orthostatic hypotension; T50.2X5A Adverse effect of carbonic-anhydrase inhibitors, benzothiadiazides and other diuretics, initial encounter; Y92.89 Other specified places as the place of occurrence of the external cause; Z79.82 Long term (current) use of aspirin; Z79.899 Other long term (current) drug therapy; I25.2 Old myocardial infarction; Z80.6 Family history of leukemia; Z82.0 Family history of epilepsy and other diseases of the nervous system; Z87.891 Personal history of nicotine dependence; Z90.710 Acquired absence of both cervix and uterus; Z95.0 Presence of cardiac pacemaker; Z95.3 Presence of xenogenic heart valve; Z88.1 Allergy status to other antibiotic agents
CPT/HCPCS: 36415; 71020; 80048; 80053; 81003; 82040; 82533; 83880; 84436; 84443; 84484; 85025; 85610; 85730; 87081; 93005; 93308; 93321; 93325; 96360; 96361; J2354; J1720; J7030; J7050

== ENCOUNTER 2019-09-04 14:21 | Outpatient (CLI) | payer OTHER ==
[~2019-09-04 14:21] MED LIST changes: -ALBU8.5H3 NEB; +ALBU8.5H8 NEB; -ASPI-621 PO; +ASPI81TA45 PO; -TRAM-28 PO; +TRAM-47 PO
[2019-09-04] MEDS ORDERED: OMNIPAQUE 350 MG/ML, 100ML BOTTLE ONE (15:09)
== END 2019-09-04 23:59 | disposition home or self-care (01) ==
LOC: CFH 14:21
PROVIDERS: ATTEND Internal Medicine Cardiovascular Disease
DX: I07.1 Rheumatic tricuspid insufficiency (principal); J84.10 Pulmonary fibrosis, unspecified; I77.810 Thoracic aortic ectasia
CPT/HCPCS: 71275; 82565; 93306; Q9967

== ENCOUNTER 2020-09-09 18:43 | Emergency (ER) | payer OTHER ==
[~2020-09-09] VITALS: Ht 167.6 cm; Wt 106.7 kg
[~2020-09-09 18:43] MED LIST changes: -PANT40TA5 PO; +PANT40TA6 PO; -WARF5TAB PO-COUM; +WARF5TAB2 PO-COUM
[2020-09-09] MEDS ORDERED: SODIUM CHLORIDE FLUSH 10ML SYR IVF ONE (20:00)
[2020-09-09 20:21] LABS: BASOPHILS % (AUTO) 1 % (0-1); EOSINOPHILS % (AUTO) 2 % (1-7); LYMPHOCYTES % (AUTO) 37 % (22-44); MEAN CORPUSCULAR HEMOGLOBIN 29.8 pg (27.0-34.8); MEAN CORPUSCULAR HGB CONC 33.3 g/dL (32.4-35.8); MEAN PLATELET VOLUME 8.5 fL (7.4-10.4); MONOCYTES % (AUTO) 6 % (2-9); NEUTROPHILS % (AUTO) 54 % (42-75); PLATELET COUNT 155 x10^3/uL (130-400); RED BLOOD COUNT 4.67 x10^6/uL (3.82-5.3); RED CELL DISTRIBUTION WIDTH 14.3 % (9.6-15.2)
[2020-09-09 20:25] LABS: MD NO
[2020-09-09 20:34] LABS: ALANINE AMINOTRANSFERASE 37 U/L (12-78); ALBUMIN 3.3 g/dL (3.4-5.0); ANION GAP 5 mmol/L (5-15); CALCIUM 8.7 mg/dL (8.5-10.1); CHLORIDE 107 mmol/L (98-107); CREATININE 0.93 mg/dL (0.55-1.02)
[2020-09-09 20:38] LABS: ALKALINE PHOSPHATASE 93 U/L (45-117); BILIRUBIN,TOTAL 0.7 mg/dL (0.2-1.0); TOTAL PROTEIN 6.5 g/dL (6.4-8.2); TROPONIN I < 0.015 ng/mL (0.000-0.045)
--- NOTE | 2020-09-09 20:50 | NUR ---
RECEIVED REPORT FROM DAVID CABRERA TO ASSUME CARE OF PT. AT THIS TIME.
--- NOTE | 2020-09-09 21:56 | NUR ---
PT. WAS AMBULATORY TO BR WITH STEADY GAIT. ALL RESULTS BACK AND CHART UP FOR RECHECK BY ERP.
--- NOTE | 2020-09-09 22:29 | NUR ---
DR. SUNG AT TO DISCUSS ED FINDINGS AND POC WITH PT. AND FAMILY.
[2020-09-09 22:55] VITALS: BP 102/78
== END 2020-09-09 22:56 | disposition home or self-care (01) ==
LOC: ED 22:30
DX: R53.1 Weakness (principal); R42 Dizziness and giddiness; I45.10 Unspecified right bundle-branch block; I44.4 Left anterior fascicular block; R53.83 Other fatigue; I25.2 Old myocardial infarction; I10 Essential (primary) hypertension; E03.9 Hypothyroidism, unspecified; Z95.0 Presence of cardiac pacemaker
CPT/HCPCS: 36415; 71045; 80053; 84484; 85025; 93005; 99285